=== PATIENT | female | born 1980 | race Caucasian/White ===

== ENCOUNTER → 2016-04-20 | Outpatient (REF) | payer BC | LOC: M LAB REF 13:18 | PROVIDERS: ATTEND Obstetrics & Gynecology | DX: Z34.83 Encounter for supervision of other normal pregnancy, third trimester (principal) ==

== ENCOUNTER 2016-05-24 12:58 | Outpatient (CLI) | payer BC ==
[~2016-05-24] VITALS: Ht 170.2 cm; Wt 84.0 kg
[2016-05-24 13:14] VITALS: BP 137/80
[2016-05-24] MEDS ORDERED: PRENTAB9 PO (13:24)
== END 2016-05-24 13:48 | disposition home or self-care (01) ==
LOC: M LDO 12:58
PROVIDERS: ATTEND Specialist
DX: Z34.83 Encounter for supervision of other normal pregnancy, third trimester (principal); Z3A.41 41 weeks gestation of pregnancy

== ENCOUNTER 2016-05-25 06:50 | Inpatient (IN) | payer BC ==
[2016-05-25] VITALS (19 sets, daily range): BP systolic 105–150; BP diastolic 56–85
[~2016-05-25 06:50] MED LIST: PRENTAB9 PO
[2016-05-25 08:42] LABS: MEAN CORPUSCULAR HEMOGLOBIN 32.8 pg (27.0-33.0); MEAN CORPUSCULAR HGB CONC 35.4 g/dl (32.0-36.5); MEAN CORPUSCULAR VOLUME 92.8 fl (80.0-96.0); RED CELL DISTRIBUTION WIDTH 11.8 % (11.5-14.5); WHITE BLOOD COUNT 10.5 K/mm3 (4.0-10.0)
[2016-05-25] MEDS ORDERED: LR 1,000 ML IV SCH ×3 (14:26→19:35)
[2016-05-25] MEDS ORDERED: LACTATED RINGER'S 1000 ML IV STA (14:26)
[2016-05-25] MEDS ORDERED: FENTANYL 2MCG/ML ROPIVACAINE 0.2% NACL 250 ML CADD As Ordered ONE (16:22)
[2016-05-25] MEDS ORDERED: FENTANYL/ROPIVACAINE/NACL CADD 250 ML EPIDURAL SCH (17:30)
[2016-05-25] MEDS ORDERED: diphenhydrAMINE INJ 50MG/ML VIAL (J1200) IV PRN (17:30)
[2016-05-25] MEDS ORDERED: REFRIGERATOR IV KEYS XX PRN (17:30)
[2016-05-25] MEDS ORDERED: ONDANSETRON 4MG/2ML VIAL (J2405) IV PRN ×4 (17:30→19:45)
[2016-05-25] MEDS ORDERED: NALOXONE INJ 0.4 MG/1 ML VIAL (J2310) IV PRN ×3 (17:30→18:08)
[2016-05-25] MEDS ORDERED: EPIDURAL/PCA KEYS XX PRN (17:30)
[2016-05-25] MEDS ORDERED: ePHEDrine SULFATE 25 MG/5 ML(5MG/ML) SYRINGE IV PRN (17:30)
[2016-05-25] MEDS ORDERED: EPIDURAL COMMENT XX SCH (17:30)
[2016-05-25] MEDS ORDERED: BICITRA 30ML SOLN UDC As Ordered ONE (17:49)
[2016-05-25] MEDS ORDERED: ceFAZolin 2 GM/D5W 50 ML IV BAG (J0690) As Ordered ONE (17:49)
[2016-05-25] MEDS ORDERED: MORPHINE PRES-FREE INJ 10 MG/10 ML VIAL (J2274) As Ordered ONE (18:07)
[2016-05-25] MEDS ORDERED: METOCLOPRAMIDE INJ 10MG/2ML VIAL (J2765) IV PRN (18:08)
[2016-05-25] MEDS ORDERED: MEPERIDINE 50 MG/ML 1ML VIAL (J2175) As Ordered ONE (18:08)
[2016-05-25] MEDS ORDERED: NALBUPHINE HCL 10 MG/ML AMP (J2300) IV PRN ×2 (18:08→19:30)
[2016-05-25 18:17] LABS: CORD GAS ABE A -18.3; CORD GAS ABE V -11.9; CORD GAS HCO3 V 17.2 MEQ/L; CORD GAS O2 SAT A 21.4 %; CORD GAS O2 SAT V 85.3 %; CORD GAS PCO2 A 103.9 mmHg; CORD GAS PCO2 V 50.4 mmHg; CORD GAS PH A 6.856 UNITS; CORD GAS PH V 7.152 UNITS; CORD GAS PO2 A 22.1 mmHg; CORD GAS PO2 V 52.9 mmHg; CORD GAS SBC A 10.1 MEQ/L; CORD GAS SBC V 15.3 MEQ/L; CORD GAS TCO2 A 21.2 MEQ/L; CORD GAS TCO2 V 18.8 MEQ/L
[2016-05-25] MEDS ORDERED: ePHEDrine SULFATE 25 MG/5 ML(5MG/ML) SYRINGE As Ordered ONE (18:17)
[2016-05-25] MEDS ORDERED: LIDOCAINE 2% W/EPIN INJ 20ML **PRES FREE As Ordered ONE (18:21)
[2016-05-25] MEDS ORDERED: PROPOFOL 200 MG/20 ML VIAL As Ordered ONE (18:21)
[2016-05-25] MEDS ORDERED: OXYTOCIN INJ 10 UNITS/ML VIAL (J2590) As Ordered ONE (18:32)
[2016-05-25] MEDS ORDERED: MEPERIDINE INJ 25 MG/ML VIAL (J2175) IV PRN (19:30)
[2016-05-25] MEDS ORDERED: fentaNYL 100 MCG/2 ML INJECTION (J3010) IV PRN (19:30)
[2016-05-25] MEDS ORDERED: PROMETHAZINE 25 MG TAB PO PRN (19:45)
[2016-05-25] MEDS ORDERED: MEASLES,MUMPS,RUBELLA VACCINE INJ (MMR-II) (90707) SC SCH (19:45)
[2016-05-25] MEDS ORDERED: RHOGAM 300 MCG (1500 IU) INJ (J2790) IM SCH (19:45)
[2016-05-25] MEDS: KETOROLAC 30 MG/ML VIAL (J1885) IV SCH (19:45)
[2016-05-25] MEDS ORDERED: PERCOCET 5MG/325MG TAB PO PRN (19:45)
[2016-05-25] MEDS: DOCUSATE SODIUM 100 MG CAP PO SCH (21:00)
[2016-05-26] MEDS: KETOROLAC 30 MG/ML VIAL (J1885) IV SCH ×3 (02:04→13:45)
[2016-05-26 02:05] VITALS: BP 132/68
[2016-05-26 06:50] VITALS: BP 116/70
[2016-05-26] MEDS ORDERED: OXYC1TAB23 PO (07:01)
[2016-05-26] MEDS ORDERED: IBUP600T26 PO (07:03)
[2016-05-26] MEDS ORDERED: COLA100C PO (07:03)
[2016-05-26 07:25] LABS: MEAN CORPUSCULAR HEMOGLOBIN 33.2 pg (27.0-33.0); MEAN CORPUSCULAR HGB CONC 35.2 g/dl (32.0-36.5); MEAN CORPUSCULAR VOLUME 94.3 fl (80.0-96.0); RED CELL DISTRIBUTION WIDTH 11.9 % (11.5-14.5); WHITE BLOOD COUNT 12.1 K/mm3 (4.0-10.0)
[2016-05-26] MEDS: PERCOCET 5MG/325MG TAB PO PRN ×2 (07:39→21:20)
[2016-05-26] MEDS: DOCUSATE SODIUM 100 MG CAP PO SCH ×2 (08:56→21:19)
[2016-05-26] MEDS: PRENATAL VITAMIN TAB PO SCH (08:56)
[2016-05-26 10:32] VITALS: BP 126/57
[2016-05-26 14:00] VITALS: BP 130/59
[2016-05-26 18:00] VITALS: BP 120/57
[2016-05-26] MEDS: IBUPROFEN 800 MG TAB PO SCH (21:19)
[2016-05-26 22:02] VITALS: BP 130/61
[2016-05-27 05:29] VITALS: BP 133/63
[2016-05-27] MEDS: IBUPROFEN 800 MG TAB PO SCH (06:19)
[2016-05-27] MEDS ORDERED: OXYC1TAB23 PO (07:56)
[2016-05-27] MEDS: PRENATAL VITAMIN TAB PO SCH (08:16)
[2016-05-27] MEDS: DOCUSATE SODIUM 100 MG CAP PO SCH (08:16)
== END 2016-05-27 10:25 | disposition home or self-care (01) | DRG 540 ==
LOC: M LDO 06:50 → M LDI 07:17 → M OBS 21:08
PROVIDERS: ADMIT Specialist; ATTEND Specialist
PROC: 10D00Z1 Extraction of Products of Conception, Low, Open Approach (ICD-10-PCS; principal; 2016-05-25 08:14)
DX: O48.0 Post-term pregnancy (principal); O77.0 Labor and delivery complicated by meconium in amniotic fluid; Z37.0 Single live birth; Z3A.41 41 weeks gestation of pregnancy; O76 Abnormality in fetal heart rate and rhythm complicating labor and delivery; O09.523 Supervision of elderly multigravida, third trimester

== ENCOUNTER → 2016-08-13 | Outpatient (REF) | payer BC ==
[~2016-08-13] MED LIST changes: +COLA100C3 PO; +IBUP600T26 PO; +OXYC1TAB23 PO
== END ==
LOC: M LAB REF 17:06
PROVIDERS: ATTEND Pediatrics
DX: Z12.4 Encounter for screening for malignant neoplasm of cervix (principal)

== ENCOUNTER → 2017-10-18 | Outpatient (CLI) | payer BC ==
[2017-10-18 19:03] LABS: BASO % 0.2 % (0.0-1.0); EOS # 0.1 10^3/uL (0.0-0.50); EOS % 1.2 % (0.0-3.0); HEMATOCRIT 38.4 % (36.0-47.0); HEMOGLOBIN 13.7 g/dl (12.0-15.5); IMMATURE GRANULOCYTE % 0.3 % (0-3.0); LYMPH # 1.8 10^3/uL (1.5-4.5); LYMPH % 29.9 % (24.0-44.0); MEAN CORPUSCULAR HGB CONC 35.7 g/dl (32.0-36.5); MEAN CORPUSCULAR VOLUME 89.7 fl (80.0-96.0); MONO # 0.5 10^3/uL (0.0-0.8); MONO % 7.6 % (0.0-5.0); NEUTROPHILS # 3.6 10^3/uL (1.8-7.7); NEUTROPHILS % 60.8 % (36.0-66.0); PLATELET COUNT, AUTOMATED 201 10^3/uL (150-450); RED BLOOD COUNT 4.28 10^6/uL (4.00-5.40); RED CELL DISTRIBUTION WIDTH 12.1 % (11.5-14.5); WHITE BLOOD COUNT 5.9 10^3/uL (4.0-10.0)
[2017-10-20 11:47] LABS: RUBELLA IgG QUALITATIVE IMMUNE (IMMUNE)
[2017-10-20 11:55] LABS: HBsAg Prenatal NEGATIVE (NEGATIVE)
[2017-10-20 12:18] LABS: HEPATITIS C VIRUS ABY INDEX 0.3 INDEX (<0.8)
[2017-10-20 12:18] LABS: HIV 1&2 SCREEN CENTAUR NEGATIVE (NEGATIVE)
== END ==
LOC: M SMT 14:22
DX: Z34.81 Encounter for supervision of other normal pregnancy, first trimester (principal); Z36.89 Encounter for other specified antenatal screening
CPT/HCPCS: 86762

== ENCOUNTER → 2017-11-09 | Outpatient (REF) | payer BC ==
[2017-11-09 16:20] LABS: CHLAMYDIA DNA AMPLIFICATION NEGATIVE (NEGATIVE); GC DNA AMPLIFICATION NEGATIVE (NEGATIVE)
== END ==
LOC: M LAB REF 13:15
DX: Z34.82 Encounter for supervision of other normal pregnancy, second trimester (principal)
CPT/HCPCS: 87086

== ENCOUNTER 2017-12-06 10:30 | Day surgery (SDC) | payer BC ==
[2017-12-06] MEDS ORDERED: MIDAZOLAM INJ 2 MG/2 ML VIAL (J2250) As Ordered (10:38)
[2017-12-06] MEDS ORDERED: LIDOCAINE 2% INJ 100 MG/5 ML SDV (FOR ANES.) As Ordered (10:38)
[2017-12-06] MEDS ORDERED: fentaNYL 100 MCG/2 ML INJECTION (J3010) As Ordered (10:38)
[2017-12-06] MEDS ORDERED: PROPOFOL 200 MG/20 ML VIAL As Ordered (10:38)
[2017-12-06] MEDS: LIDOCAINE 1% SDV INJ 30 ML VIAL As Ordered (10:40)
[2017-12-06] MEDS: LR 1,000 ML IV (11:28)
[2017-12-06] MEDS ORDERED: SUCCINYLCHOLINE 100 MG/5 ML SYRINGE (J0330) As Ordered (12:24)
[2017-12-06] MEDS ORDERED: ROCURONIUM BROMIDE 50 MG/5 ML VIAL As Ordered (12:24)
[2017-12-06] MEDS ORDERED: METOCLOPRAMIDE INJ 10MG/2ML VIAL (J2765) As Ordered (12:37)
[2017-12-06] MEDS ORDERED: ONDANSETRON 4MG/2ML VIAL (J2405) As Ordered (12:37)
[2017-12-06] MEDS ORDERED: KETOROLAC 60 MG/2 ML VIAL (J1885) As Ordered (12:37)
[2017-12-06] MEDS ORDERED: dexameTHASONE 4 MG/ML 1ML VIAL (J1100) As Ordered ×2 (12:37)
[2017-12-06] MEDS: miSOPROStol 200 MCG TAB (S0191) As Ordered (13:09)
[2017-12-06] MEDS ORDERED: PERCOCET 5MG/325MG TAB PO ×2 (13:45)
[2017-12-06] MEDS ORDERED: ONDANSETRON 4MG/2ML VIAL (J2405) IV (13:45)
[2017-12-06] MEDS ORDERED: LR 1,000 ML IV ×2 (13:45)
[2017-12-06] MEDS ORDERED: HYDROMORPHONE HCL 0.5 MG/ 0.5 ML SYRINGE (J1170 PER 1) IV (13:45)
[2017-12-06] MEDS ORDERED: fentaNYL 100 MCG/2 ML INJECTION (J3010) IV (13:45)
[2017-12-06] MEDS: DOXYCYCLINE HYCLATE 100 MG TAB PO (14:24)
== END 2017-12-06 15:05 | disposition home or self-care (01) ==
LOC: M SDC 15:05
DX: O02.1 Missed abortion (principal); Z88.5 Allergy status to narcotic agent
CPT/HCPCS: 59821

== ENCOUNTER → 2017-12-21 | Outpatient (CLI) | payer BC ==
[2017-12-21 20:10] LABS: FREE T4 1.13 NG/DL (0.76-1.46)
[2017-12-24 00:07] LABS: ANTI PARVO VIRUS LEVEL IGG 6.7 index (0.0-0.8); ANTI PARVO VIRUS LEVEL IgM 0.2 index (0.0-0.8); CARDIOLIPIN IGA ANTIBODY <9 APL U/mL (0-11); CARDIOLIPIN IGG ANTIBODY <9 GPL U/mL (0-14); CARDIOLIPIN IGM ANTIBODY 11 MPL U/mL (0-12); CYTOMEGALOVIRUS IgG ANTIBODY <0.60 U/mL (0.00-0.59); CYTOMEGALOVIRUS IgM ANTIBODY <30.0 AU/mL (0.0-29.9); TOXOPLASMA IgG ABY <3.0 IU/mL (0.0-7.1); TOXOPLASMA IgM ABY <3.0 AU/mL (0.0-7.9)
[2017-12-28 10:27] LABS: DRVV SCREEN 35.8 SEC
[2017-12-28 10:30] LABS: PTT LUPUS TYPE ANTICOAG SCREEN 0.9 (0-1.2)
== END ==
LOC: M SMT 12:15
DX: O36.4XX2 Maternal care for intrauterine death, fetus 2 (principal)
CPT/HCPCS: 84443

== ENCOUNTER → 2018-06-14 | Outpatient (CLI) | payer BC ==
[~2018-06-14] MED LIST changes: -COLA100C3 PO; +COLA100C5 PO; +IBUP-1022 PO; -IBUP600T26 PO
[2018-06-14 18:57] LABS: CHLAMYDIA DNA AMPLIFICATION NEGATIVE (NEGATIVE); GC DNA AMPLIFICATION NEGATIVE (NEGATIVE)
== END ==
LOC: M SMT 10:54
PROVIDERS: ATTEND Specialist
DX: Z36.89 Encounter for other specified antenatal screening (principal)

== ENCOUNTER → 2018-07-05 | Outpatient (CLI) | payer BC ==
[2018-07-05 13:32] LABS: BASO % 0.2 % (0.0-1.0); EOS # 0.1 10^3/uL (0.0-0.50); HEMATOCRIT 35.7 % (36.0-47.0); HEMOGLOBIN 12.8 g/dl (12.0-15.5); LYMPH # 1.4 10^3/uL (1.5-4.5); LYMPH % 21.9 % (24.0-44.0); MEAN CORPUSCULAR HEMOGLOBIN 32.4 pg (27.0-33.0); MEAN CORPUSCULAR HGB CONC 35.9 g/dl (32.0-36.5); MEAN CORPUSCULAR VOLUME 90.4 fl (80.0-96.0); MONO # 0.4 10^3/uL (0.0-0.8); MONO % 5.6 % (0.0-5.0); NEUTROPHILS # 4.4 10^3/uL (1.8-7.7); NEUTROPHILS % 70.8 % (36.0-66.0); PLATELET COUNT, AUTOMATED 179 10^3/uL (150-450); RED BLOOD COUNT 3.95 10^6/uL (4.00-5.40); WHITE BLOOD COUNT 6.2 10^3/uL (4.0-10.0)
[2018-07-06 10:05] LABS: HEPATITIS C VIRUS ABY INDEX 0.1 INDEX (<0.8); HIV 1&2 SCREEN CENTAUR NEGATIVE (NEGATIVE); RUBELLA IgG QUALITATIVE IMMUNE (IMMUNE)
== END ==
LOC: M SMT 10:25
PROVIDERS: ATTEND Specialist
DX: Z34.81 Encounter for supervision of other normal pregnancy, first trimester (principal); Z3A.11 11 weeks gestation of pregnancy

== ENCOUNTER → 2018-09-21 | Outpatient (REF) | payer BC | LOC: M LAB REF 12:46 | PROVIDERS: ATTEND Advanced Practice Midwife | DX: O09.522 Supervision of elderly multigravida, second trimester (principal) ==

== ENCOUNTER → 2018-12-29 | Outpatient (CLI) | payer BC ==
[~2018-12-29] MED LIST changes: +QC A650T3 PO
== END ==
LOC: M SMT 10:46
PROVIDERS: ATTEND Obstetrics & Gynecology
DX: Z36.85 Encounter for antenatal screening for Streptococcus B (principal); Z3A.00 Weeks of gestation of pregnancy not specified

== ENCOUNTER 2019-01-16 05:28 | Inpatient (IN) | payer BC ==
[~2019-01-16] VITALS: Ht 170.2 cm; Wt 86.6 kg
[2019-01-16 06:41] LABS: HEMATOCRIT 39.2 % (36.0-47.0); HEMOGLOBIN 13.9 g/dl (12.0-15.5); MEAN CORPUSCULAR HEMOGLOBIN 33.6 pg (27.0-33.0); MEAN CORPUSCULAR HGB CONC 35.5 g/dl (32.0-36.5); MEAN CORPUSCULAR VOLUME 94.7 fl (80.0-96.0); PLATELET COUNT, AUTOMATED 201 10^3/uL (150-450); RED BLOOD COUNT 4.14 10^6/uL (4.00-5.40); WHITE BLOOD COUNT 11.8 10^3/uL (4.0-10.0)
[2019-01-16] MEDS ORDERED: BICITRA 30ML SOLN UDC As Ordered ONE (07:19)
[2019-01-16] MEDS ORDERED: ceFAZolin 2 GM/D5W 50 ML IV BAG (J0690 PER 500MG) As Ordered ONE (07:22)
[2019-01-16] MEDS ORDERED: MORPHINE PRES-FREE INJ 10 MG/10 ML VIAL (J2274) As Ordered ONE (07:22)
[2019-01-16] MEDS ORDERED: BUPIVACAINE/DEXTROSE 0.75% 2 ML AMP As Ordered ONE (07:28)
[2019-01-16] MEDS ORDERED: ONDANSETRON 4MG/2ML VIAL (J2405) IV PRN ×3 (08:00→09:45)
[2019-01-16] MEDS ORDERED: NALOXONE INJ 0.4 MG/1 ML VIAL (J2310) IV PRN ×2 (08:00)
[2019-01-16] MEDS ORDERED: BICITRA 30ML SOLN UDC PO ONE (08:00)
[2019-01-16] MEDS ORDERED: diphenhydrAMINE INJ 50MG/ML VIAL (J1200) IV PRN (08:00)
[2019-01-16] MEDS ORDERED: ceFAZolin SOD 2 GM in IV 1 EA IV ONE (08:00)
[2019-01-16] MEDS ORDERED: LACTATED RINGER'S 1000 ML IV ONE (08:00)
[2019-01-16] MEDS ORDERED: NALBUPHINE HCL 10 MG/ML AMP (J2300) IV PRN (08:00)
[2019-01-16] MEDS ORDERED: METOCLOPRAMIDE INJ 10MG/2ML VIAL (J2765) IV PRN ×2 (08:00→09:45)
[2019-01-16] MEDS ORDERED: LR 1,000 ML IV SCH ×3 (08:00→09:45)
[2019-01-16] MEDS ORDERED: ONDANSETRON 4MG/2ML VIAL (J2405) As Ordered ONE (08:10)
[2019-01-16] MEDS ORDERED: GLYCOPYRROLATE INJ 0.2 MG/ML 2 ML VIAL As Ordered ONE (08:20)
[2019-01-16] MEDS ORDERED: KETOROLAC 60 MG/2 ML VIAL (J1885) As Ordered ONE (08:35)
[2019-01-16] MEDS ORDERED: ePHEDrine SULFATE 25 MG/5 ML(5MG/ML) SYRINGE As Ordered ONE (08:36)
[2019-01-16] MEDS ORDERED: OXYTOCIN 30 UNITS IN 0.9% NaCl 500ML IV BAG (J2590) As Ordered ONE (09:05)
[2019-01-16] MEDS ORDERED: OXYTOCIN DRIP 30 UNITS in IV 1 EA IV SCH (09:16)
[2019-01-16] MEDS ORDERED: RHOGAM 300 MCG (1500 IU) INJ (J2790) IM SCH (09:30)
[2019-01-16] MEDS ORDERED: PROMETHAZINE 25 MG TAB PO PRN (09:30)
[2019-01-16] MEDS ORDERED: PERCOCET 5MG/325MG TAB PO PRN ×2 (09:30→09:45)
[2019-01-16] MEDS ORDERED: ACETAMINOPHEN 500 MG TAB PO PRN (09:30)
[2019-01-16] MEDS ORDERED: MEASLES,MUMPS,RUBELLA VACCINE INJ (MMR-II) (90707) SC SCH (09:30)
[2019-01-16] MEDS ORDERED: fentaNYL 100 MCG/2 ML INJECTION (J3010) IV PRN (09:45)
[2019-01-16 10:30] VITALS: BP 107/53
[2019-01-16 11:00] VITALS: BP 105/55
[2019-01-16 12:00] VITALS: BP 103/51
[2019-01-16 13:00] VITALS: BP 125/62
[2019-01-16] MEDS: KETOROLAC 30 MG/ML VIAL (J1885) IV SCH ×2 (15:05→20:15)
[2019-01-16 18:00] VITALS: BP 110/57
[2019-01-16] MEDS: DOCUSATE SODIUM 100 MG CAP PO SCH (21:35)
[2019-01-16 22:00] VITALS: BP 104/51
[2019-01-17] MEDS: KETOROLAC 30 MG/ML VIAL (J1885) IV SCH (01:45)
[2019-01-17 02:00] VITALS: BP 118/56
[2019-01-17 05:47] VITALS: BP 102/53
[2019-01-17 07:17] LABS: HEMATOCRIT 33.4 % (36.0-47.0); MEAN CORPUSCULAR HEMOGLOBIN 32.8 pg (27.0-33.0); MEAN CORPUSCULAR HGB CONC 34.1 g/dl (32.0-36.5); PLATELET COUNT, AUTOMATED 179 10^3/uL (150-450); RED BLOOD COUNT 3.48 10^6/uL (4.00-5.40); WHITE BLOOD COUNT 10.5 10^3/uL (4.0-10.0)
[2019-01-17 07:25] LABS: HEMOGLOBIN 11.4 g/dl (12.0-15.5)
[2019-01-17] MEDS: DOCUSATE SODIUM 100 MG CAP PO SCH ×2 (09:47→20:04)
[2019-01-17] MEDS: PRENATAL VITAMINS CHEWABLE TABLET PO SCH (09:47)
[2019-01-17] MEDS: IBUPROFEN 800 MG TAB PO SCH ×2 (09:47→18:24)
[2019-01-17 10:00] VITALS: BP 110/64
[2019-01-17] MEDS: PERCOCET 5MG/325MG TAB PO PRN ×2 (13:43→20:05)
[2019-01-17 14:00] VITALS: BP 108/55
[2019-01-17 19:05] VITALS: BP 122/67
[2019-01-17 22:00] VITALS: BP 126/82
[2019-01-18 02:00] VITALS: BP 136/86
[2019-01-18] MEDS: IBUPROFEN 800 MG TAB PO SCH ×2 (02:00→08:51)
[2019-01-18 03:30] VITALS: BP 126/63
[2019-01-18] MEDS: PERCOCET 5MG/325MG TAB PO PRN (05:03)
[2019-01-18 05:47] VITALS: BP 124/68
[2019-01-18] MEDS ORDERED: IBUP80TA PO (07:46)
[2019-01-18] MEDS ORDERED: DOCU100C16 PO (07:46)
[2019-01-18] MEDS ORDERED: PERCOCET PO (07:46)
[2019-01-18] MEDS: DOCUSATE SODIUM 100 MG CAP PO SCH (08:50)
[2019-01-18] MEDS: PRENATAL VITAMINS CHEWABLE TABLET PO SCH (08:51)
[2019-01-18 10:00] VITALS: BP 114/56
== END 2019-01-18 11:55 | disposition home or self-care (01) | DRG 540 ==
LOC: M LDI 05:28 → M OBS 10:43
PROVIDERS: ADMIT Obstetrics & Gynecology; ATTEND Obstetrics & Gynecology
PROC: 10D00Z1 Extraction of Products of Conception, Low, Open Approach (ICD-10-PCS; principal; 2019-01-16 07:30)
DX: O34.211 Maternal care for low transverse scar from previous cesarean delivery (principal); O09.523 Supervision of elderly multigravida, third trimester; Z37.0 Single live birth; Z3A.39 39 weeks gestation of pregnancy

== ENCOUNTER → 2019-03-14 | Outpatient (REF) | payer BC ==
[~2019-03-14] MED LIST changes: +DOCU100C16 PO; +IBUP80TA PO; +PERCOCET PO
== END ==
LOC: M SFHCWAGY 17:53
PROVIDERS: ATTEND Obstetrics & Gynecology
DX: Z39.2 Encounter for routine postpartum follow-up (principal)
CPT/HCPCS: 87624; G0123

== ENCOUNTER → 2021-01-28 | Outpatient (REF) | payer BC | LOC: M SFHCWAGY 19:06 | PROVIDERS: ATTEND Obstetrics & Gynecology | DX: Z12.4 Encounter for screening for malignant neoplasm of cervix (principal) | CPT/HCPCS: 87624; G0123 ==

== ENCOUNTER → 2022-06-23 | Outpatient (REF) | payer BC, OTHER | LOC: M SFHCWAGY 13:10 | PROVIDERS: ATTEND Obstetrics & Gynecology | DX: Z12.4 Encounter for screening for malignant neoplasm of cervix (principal); R87.610 Atypical squamous cells of undetermined significance on cytologic smear of cervix (ASC-US) | CPT/HCPCS: 87624; G0123 ==

== ENCOUNTER → 2022-06-23 | Outpatient (CLI) | payer BC, OTHER | LOC: M WHC 09:26 | PROVIDERS: ATTEND Obstetrics & Gynecology | DX: Z12.31 Encounter for screening mammogram for malignant neoplasm of breast (principal); R92.8 Other abnormal and inconclusive findings on diagnostic imaging of breast; R10.2 Pelvic and perineal pain; N83.201 Unspecified ovarian cyst, right side ==

== ENCOUNTER → 2022-07-08 | Outpatient (CLI) | payer BC, OTHER | LOC: M WHC 09:22 | PROVIDERS: ATTEND Obstetrics & Gynecology | DX: R92.2 Inconclusive mammogram (principal) | CPT/HCPCS: 76642; 77065; G0279 ==

== ENCOUNTER → 2023-01-12 | Outpatient (CLI) | payer BC, OTHER | LOC: M WHC 11:05 | PROVIDERS: ATTEND Obstetrics & Gynecology | DX: R92.8 Other abnormal and inconclusive findings on diagnostic imaging of breast (principal) | CPT/HCPCS: 77065; G0279 ==

== ENCOUNTER → 2023-05-13 | Outpatient (CLI) | payer BC, OTHER ==
[2023-05-13 15:51] LABS: HEMATOCRIT 38.6 % (36.0-47.0); HEMOGLOBIN 13.9 g/dl (12.0-15.5); MEAN CORPUSCULAR HEMOGLOBIN 32.6 pg (27.0-33.0); MEAN CORPUSCULAR VOLUME 90.4 fl (80.0-96.0); PLATELET COUNT, AUTOMATED 232 10^3/uL (150-450); RED BLOOD COUNT 4.27 10^6/uL (4.00-5.40); WHITE BLOOD COUNT 5.7 10^3/uL (4.0-10.0)
== END ==
LOC: M PLALAB 14:28
PROVIDERS: ATTEND Obstetrics & Gynecology
DX: N93.9 Abnormal uterine and vaginal bleeding, unspecified (principal); Z12.4 Encounter for screening for malignant neoplasm of cervix; R87.610 Atypical squamous cells of undetermined significance on cytologic smear of cervix (ASC-US)
CPT/HCPCS: 36415; 84443; 85027; 87624; G0123

== ENCOUNTER → 2023-06-29 | Outpatient (REF) | payer OTHER | LOC: M SFHCWAGY 12:50 | PROVIDERS: ATTEND Obstetrics & Gynecology | DX: Z12.4 Encounter for screening for malignant neoplasm of cervix (principal) | CPT/HCPCS: 87624; G0123 ==

== ENCOUNTER → 2023-06-29 | Outpatient (CLI) | payer BC | LOC: M WHC 12:00 | PROVIDERS: ATTEND Obstetrics & Gynecology | DX: N93.9 Abnormal uterine and vaginal bleeding, unspecified (principal); N83.201 Unspecified ovarian cyst, right side; N83.202 Unspecified ovarian cyst, left side ==

== ENCOUNTER → 2023-06-29 | Outpatient (CLI) | payer BC | LOC: M WHC 10:19 | PROVIDERS: ATTEND Obstetrics & Gynecology | DX: Z12.31 Encounter for screening mammogram for malignant neoplasm of breast (principal); R92.333 Mammographic heterogeneous density, bilateral breasts ==

== ENCOUNTER → 2024-06-29 | Outpatient (CLI) | payer BC | LOC: M WHC 10:23 | PROVIDERS: ATTEND Obstetrics & Gynecology | DX: N60.19 Diffuse cystic mastopathy of unspecified breast (principal); R92.313 Mammographic fatty tissue density, bilateral breasts | CPT/HCPCS: 77066; G0279 ==

== ENCOUNTER → 2024-06-29 | Outpatient (REF) | payer BC, OTHER | LOC: M SFHCWAGY 13:22 | PROVIDERS: ATTEND Obstetrics & Gynecology | DX: Z12.4 Encounter for screening for malignant neoplasm of cervix (principal) ==